=== PATIENT | female | born 1995 | race Caucasian/White ===

== ENCOUNTER 2024-06-21 17:25 | Inpatient (IN) | payer SELFPAY ==
[~2024-06-21] VITALS: Ht 165.1 cm; Wt 83.2 kg
[2024-06-21 18:13] LABS: HEMATOCRIT 42.7 % (36.0-47.0); HEMOGLOBIN 14.2 g/dl (12.0-15.5); MEAN CORPUSCULAR HGB CONC 33.3 g/dl (32.0-36.5); MEAN CORPUSCULAR VOLUME 84.2 fl (80.0-96.0); PLATELET COUNT, AUTOMATED 313 10^3/uL (150-450); RED BLOOD COUNT 5.07 10^6/uL (4.00-5.40); WHITE BLOOD COUNT 9.5 10^3/uL (4.0-10.0)
[2024-06-21 18:36] LABS: ETHYL ALCOHOL (ETHANOL) < 0.003 % (0.000-0.010)
[2024-06-21 18:38] LABS: ALBUMIN 4.1 G/DL (3.2-5.2); ALKALINE PHOSPHATASE 88 U/L (35-104); ALT/SGPT 25 U/L (7.0-40); AST/SGOT 21 U/L (<34); BILIRUBIN,DIRECT < 0.1 MG/DL (<0.4); BILIRUBIN,TOTAL 0.3 MG/DL (0.3-1.2); BLOOD UREA NITROGEN 16 MG/DL (9-23); CALCIUM LEVEL 9.1 MG/DL (8.5-10.1); CARBON DIOXIDE LEVEL 25 MMOL/L (20-31); CHLORIDE LEVEL 107 MMOL/L (98-107); CREATININE FOR GFR 0.78 MG/DL (0.55-1.30); GLOMERULAR FILTRATION RATE > 90.0 (>60); GLUCOSE, FASTING 88 MG/DL (60-100); SALICYLATE LEVEL < 3.0 MG/DL (<30); SODIUM LEVEL 141 MMOL/L (136-145); TOTAL PROTEIN 7.8 G/DL (5.7-8.2)
[2024-06-21 18:40] LABS: THYROID STIMULATING HORMONE 1.606 uIU/ML (0.55-4.78)
[2024-06-21 19:48] LABS: AMPHETAMINES LEVEL URINE NEGATIVE (NEGATIVE); BARBITURATES URINE NEGATIVE (NEGATIVE); BENZODIAZEPINES URINE NEGATIVE (NEGATIVE); CANNABINOIDS URINE NEGATIVE (NEGATIVE); COCAINE METABOLITE URINE NEGATIVE (NEGATIVE); METHADONE URINE NEGATIVE (NEGATIVE); OPIATES URINE NEGATIVE (NEGATIVE); PHENCYCLIDINE URINE NEGATIVE (NEGATIVE)
[2024-06-21] MEDS ORDERED: TOPA50TA8 PO (20:20)
[2024-06-21] MEDS ORDERED: SERO50TA PO (20:20)
[2024-06-21] MEDS ORDERED: PROZ10CA7 PO (20:20)
[2024-06-21] MEDS ORDERED: PROP20TA72 PO (20:20)
[2024-06-21] MEDS ORDERED: LATU1TAB PO (20:20)
[2024-06-21] MEDS ORDERED: HOME MED LIST COMPLETE! XX SCH (20:25)
[2024-06-22] MEDS ORDERED: PROPRANOLOL 20 MG TAB PO PRN ×2 (08:55→19:20)
[2024-06-22] MEDS: FLUoxetine 10 MG CAP PO SCH (09:30)
[2024-06-22] MEDS: TOPIRAMATE (TopAMAX) 25 MG TAB PO SCH ×2 (09:43→20:10)
[2024-06-22 11:51] VITALS: BP 115/71; TEMP 98; O2SAT 100
[2024-06-22] MEDS ORDERED: OLANZapine ORAL DISINTEGRATING TAB 5MG PO PRN (12:35)
[2024-06-22] MEDS ORDERED: MAALOX 30 ML SUSP *UDC PO PRN (12:35)
[2024-06-22] MEDS ORDERED: ACETAMINOPHEN 325 MG TAB PO PRN (12:35)
[2024-06-22] MEDS ORDERED: traZODone 50 MG TAB PO PRN (12:35)
[2024-06-22] MEDS ORDERED: MOM 30ML SUSPENSION UDC PO PRN (12:35)
[2024-06-22] MEDS ORDERED: diphenhydrAMINE 25MG CAP PO PRN (12:35)
[2024-06-22] MEDS ORDERED: IBUPROFEN 400MG TAB PO PRN (12:35)
[2024-06-22 15:30] VITALS: BP 111/72; TEMP 96.9; O2SAT 99
[2024-06-22] MEDS ORDERED: LURASIDONE 20 MG TAB (LATUDA) PO SCH (18:00)
[2024-06-22] MEDS: QUEtiapine FUMARATE 50MG TAB PO SCH (20:10)
[2024-06-22] MEDS: LURASIDONE 20 MG TAB (LATUDA) PO SCH (20:11)
[2024-06-22] MEDS ORDERED: QUEtiapine FUMARATE 50MG TAB PO SCH (21:00)
[2024-06-23 06:28] VITALS: BP 108/71; TEMP 97.5; O2SAT 100
[2024-06-23] MEDS ORDERED: FLUoxetine 10 MG CAP PO SCH (09:00)
[2024-06-23 15:52] VITALS: BP 116/71; TEMP 98.1; O2SAT 99
[2024-06-24 09:13] VITALS: BP 114/66; TEMP 97.6; O2SAT 100
[2024-06-24 15:56] VITALS: BP 114/65; TEMP 97.9; O2SAT 98
[2024-06-25 06:28] VITALS: BP 127/80; TEMP 98.1; O2SAT 99
[2024-06-25] MEDS ORDERED: ABIL1TAB11 PO (10:23)
[2024-06-25] MEDS ORDERED: PROP20TA72 PO (10:23)
== END 2024-06-25 14:52 | disposition home or self-care (01) | DRG 754 ==
LOC: M ED 17:25 → M ED INP 06-22 09:15 → M PSY 06-22 11:37
PROVIDERS: ADMIT Psychiatry & Neurology Psychiatry; ATTEND Psychiatry & Neurology Psychiatry
DX: F32.A Depression, unspecified (principal); F60.3 Borderline personality disorder; R45.851 Suicidal ideations; F43.10 Post-traumatic stress disorder, unspecified; F41.9 Anxiety disorder, unspecified; Z91.52 Personal history of nonsuicidal self-harm; Z79.899 Other long term (current) drug therapy; Z88.5 Allergy status to narcotic agent